=== PATIENT | female | born 1980 | race African-American/Black ===

== ENCOUNTER 2018-12-01 11:31 | Emergency (ER) | payer OTHER ==
[2018-12-01 11:45] VITALS: BP 112/68
--- NOTE | 2018-12-01 11:57 | UC ---
Skin Complaint HPI - HPI Summary HPI Summary: left underarm abscess increase pain and swelling no drainage---also began with vaginal yeast infection after using a tampon this week-(has had in the past ) - History of Current Complaint Chief Complaint: UCGeneralIllness Time Seen by Provider: 12/01/18 11:42 Stated Complaint: SKIN COMPLAINT Hx Obtained From: Patient Hx Last Menstrual Period: 11/22/18 ?: No Onset/Duration: Gradual Onset, Lasting Days, Worse Since - today Timing: Constant Pain Intensity: 6 Pain Scale Used: 0-10 Numeric Location: Discrete Character: Swelling, Redness Aggravating Factor(s): Nothing Alleviating Factor(s): Nothing Associated Signs & Symptoms: Positive: Negative - Allergy/Home Medications Allergies/Adverse Reactions: Allergies Allergy/AdvReac Type Severity Reaction Status Date / Time No Known Allergies Allergy Verified 12/01/18 11:39 PMH/Surg Hx/FS Hx/Imm Hx Previously Healthy: Yes Other History Of: Negative For: Anticoagulant Therapy - Surgical History Surgical History: Yes Surgery Procedure, Year, and Place: D&C s/p miscarriage 06/2013. TUBAL LIGATION - Family History Known Family History: Positive: None - Social History Occupation: Works From/At Home Lives: With Family Alcohol Use: None Substance Use Type: None Smoking Status (MU): Never Smoked Tobacco - Immunization History Most Recent Tetanus Shot: Winter 2014 Review of Systems All Other Systems Reviewed And Are Negative: Yes Constitutional: Positive: Negative Skin: Positive: Other - abscess left axilla Eyes: Positive: Negative ENT: Positive: Negative Respiratory: Positive: Negative Cardiovascular: Positive: Negative Gastrointestinal: Positive: Negative Genitourinary: Positive: Vaginal/Penile Discharge - thick white Motor: Positive: Negative Neurovascular: Positive: Negative Musculoskeletal: Positive: Negative Neurological: Positive: Negative Psychological: Positive: Negative Is Patient Immunocompromised?: No Physical Exam Triage Information Reviewed: Yes Appearance: Well-Appearing, No Pain Distress, Well-Nourished Vital Signs: Initial Vital Signs Temp 98.2 F 12/01/18 11:40 Pulse 81 12/01/18 11:40 Resp 12/01/18 11:40 BP 112/68 12/01/18 11:40 Pulse Ox 100 12/01/18 11:40 Vital Signs Reviewed: Yes Eye Exam: Normal Eyes: Positive: Conjunctiva Clear ENT Exam: Normal ENT: Positive: Normal ENT inspection, Hearing grossly normal. Negative: Trismus , Muffled voice, Hoarse voice Dental Exam: Normal Neck exam: Normal Neck: Positive: Supple, Nontender, No Lymphadenopathy Respiratory Exam: Normal Respiratory: Positive: Chest non-tender, Lungs clear, No accessory muscle use Cardiovascular Exam: Normal Cardiovascular: Positive: RRR, Pulses Normal, Brisk Capillary Refill Abdominal Exam: Normal Abdomen Description: Positive: Nontender, No Organomegaly, Soft. Negative: CVA Tenderness (R), CVA Tenderness (L) Musculoskeletal Exam: Normal Musculoskeletal: Positive: Strength Intact, ROM Intact, No Edema Neurological Exam: Normal Neurological: Positive: Alert, Muscle Tone Normal Psychological Exam: Normal Skin Exam: Other Skin: Positive: Other - firm abscess left axilla, no fluctulance-- Course/Dx - Course Course Of Treatment: warm compress. Bactrim, culture urine diflucan follow with pcp this week/return as needed - Diagnoses Provider Diagnosis: Abscess of left axilla Discharge - Sign-Out/Discharge Documenting (check all that apply): Patient Departure All imaging exams completed and their final reports reviewed: No Studies - Discharge Plan Condition: Stable Disposition: HOME Prescriptions: Fluconazole 150 MG TAB* [Diflucan 150 MG TAB*] 150 mg PO ONCE #2 tablet Sulfamethox/Trimethoprim DS* [Bactrim DS 800/160 TAB*] 1 tab PO BID #20 tab Patient Education Materials: Vaginitis (ED), Abscess (ED), Warm Compress or Soak (ED) Referrals: ZHEN Mead [Medical Doctor] - 4 Days - Billing Disposition and Condition Condition: STABLE Disposition: Home - Attestation Statements Provider Attestation: I was available for consult. This patient was seen by the NELIDA. The patient was not presented to , seen by or examined by ms -Carlos Dawn MD
== END 2018-12-01 12:11 | disposition home or self-care (01) ==
LOC: UCCORT 11:31
DX: L02.412 Cutaneous abscess of left axilla (principal)
CPT/HCPCS: 81003; 84702; 87086; 99212; G0463

== ENCOUNTER 2019-01-28 16:28 | Emergency (ER) | payer OTHER ==
[2019-01-28 16:49] VITALS: BP 106/67
--- NOTE | 2019-01-28 17:09 | UC ---
Complaint Female HPI - HPI Summary HPI Summary: Pt presents with c/o constant dysuria and vaginal discomfort with thin white discharge that pt states has "fishy" odor. Pt states she has had these symptoms since November 2018. Pt was seen here is November with similar c/o , pt states she used the diflucan but without improvement of symptoms. Pt was unclear as to whether or not she took the antibiotic prescribed for her in NOVEMBER. When questioned, she only replied about taking the diflucan and and did not recall the antibiotic. - History Of Current Complaint Chief Complaint: [facility] Stated Complaint: RE-CK URINARY COMPLAINT Time Seen by Provider: 01/28/19 16:57 Hx Obtained From: Patient Hx Last Menstrual Period: 01/06/19 ?: No Onset/Duration: Gradual Onset, Lasting Weeks, Still Present, Worse Since - onset Timing: Constant Severity Initially: Mild Severity Currently: Moderate Pain Intensity: 0 Character: Dull, Burning Aggravating Factor(s): Urination Alleviating Factor(s): Nothing Associated Signs And Symptoms: Positive: Vaginal Discharge - Risk Factors Ectopic Risk Factor: Tubal Ligation Ovarian Torsion Risk Factor: Reproductive Age - Allergies/Home Medications Allergies/Adverse Reactions: Allergies Allergy/AdvReac Type Severity Reaction Status Date / Time No Known Allergies Allergy Verified 01/28/19 16:49 PMH/Surg Hx/FS Hx/Imm Hx Previously Healthy: Yes Other History Of: Negative For: Anticoagulant Therapy - Surgical History Surgical History: Yes Surgery Procedure, Year, and Place: D&C s/p miscarriage 06/2013. TUBAL LIGATION - Family History Known Family History: Positive: Cardiac Disease - Social History Occupation: Employed Full-time Lives: With Family Alcohol Use: None Substance Use Type: None Smoking Status (MU): Never Smoked Tobacco Have You Smoked in the Last Year: No - Immunization History Most Recent Tetanus Shot: Winter 2014 Vaccination Up to Date: Yes Review of Systems All Other Systems Reviewed And Are Negative: Yes Constitutional: Positive: Negative Skin: Positive: Negative Eyes: Positive: Negative ENT: Positive: Negative Respiratory: Positive: Negative Cardiovascular: Positive: Negative Gastrointestinal: Positive: Negative Genitourinary: Positive: Dysuria, Frequency, Urgency, Vaginal/Penile Burning, Vaginal/Penile Itching, Vaginal/Penile Discharge, Vaginal/Penile Tenderness Motor: Positive: Negative Neurovascular: Positive: Negative Musculoskeletal: Positive: Negative Neurological: Positive: Negative Psychological: Positive: Negative Is Patient Immunocompromised?: No Physical Exam Triage Information Reviewed: Yes Appearance: Well-Appearing Vital Signs: Initial Vital Signs Temp 99 F 01/28/19 16:43 Pulse 80 01/28/19 16:43 Resp 16 01/28/19 16:43 BP 106/67 01/28/19 16:43 Pulse Ox 99 01/28/19 16:43 Vital Signs Reviewed: Yes Eye Exam: Normal ENT Exam: Normal Dental Exam: Normal Neck exam: Normal Respiratory Exam: Normal Cardiovascular Exam: Normal Abdominal Exam: Normal Abdomen Description: Positive: Nontender Musculoskeletal Exam: Normal Neurological Exam: Normal Psychological Exam: Normal Skin Exam: Normal Complaint Female Dx - Course Course Of Treatment: I discussed the lab tests and the medications I prescribed to the pt. Pt verbalized understanding and agreed to plan of care. - Differential Dx/Diagnosis Differential Diagnosis/HQI/PQRI: Sexually Transmitted Disease, Urinary Tract Infection, Other - vaginitis Provider Diagnosis: Vaginitis, Dysuria Discharge ED - Sign-Out/Discharge Documenting (check all that apply): Patient Departure All imaging exams completed and their final reports reviewed: No Studies - Discharge Plan Condition: Stable Disposition: HOME Prescriptions: DOXYcycline CAP(*) [DOXYcycline 100MG CAP(*)] 100 mg PO Q12H #14 cap metroNIDAZOLE VAGINAL 0.75%* 1 applic VAGINAL BEDTIME #5 tube Patient Education Materials: Dysuria (ED) Referrals: Antonio Gonzalez MD [Primary Care Provider] - If Needed Additional Instructions: Please follow up with your PCP or Office Support Specialist provider as needed. If your symptoms do not improve, or worsen, please follow up as soon as possible. - Billing Disposition and Condition Condition: STABLE Disposition: Home
--- NOTE | 2019-01-30 09:11 | ED ---
Progress - Progress Note Progress Note: Positive trichomonas on lab. Sending prescription for oral flagyl for the patient. Course/Dx - Diagnoses Provider Diagnoses: Vaginitis, Dysuria Discharge ED - Sign-Out/Discharge Documenting (check all that apply): Patient Departure All imaging exams completed and their final reports reviewed: No Studies - Discharge Plan Condition: Stable Disposition: HOME Prescriptions: DOXYcycline CAP(*) [DOXYcycline 100MG CAP(*)] 100 mg PO Q12H #14 cap metroNIDAZOLE [Flagyl 500 MG TAB] 500 mg PO TID #21 tab metroNIDAZOLE VAGINAL 0.75%* 1 applic VAGINAL BEDTIME #5 tube Patient Education Materials: Dysuria (ED) Referrals: Antonio Gonzalez MD [Primary Care Provider] - If Needed Additional Instructions: Please follow up with your PCP or Room Service Food Server provider as needed. If your symptoms do not improve, or worsen, please follow up as soon as possible. - Billing Disposition and Condition Condition: STABLE Disposition: Home
[2019-01-31 15:03] LABS: Mycoplasma hominis Source URINE; Ureaplasma Source URINE; Ureaplasma parvum PCR Negative; Ureaplasma urealyticum PCR Negative
== END 2019-01-28 17:31 | disposition home or self-care (01) ==
LOC: UCCORT 16:28
DX: A59.01 Trichomonal vulvovaginitis (principal); R30.0 Dysuria
CPT/HCPCS: 81003; 87086; 87480; 87510; 87660; 87798; 99212; G0463